=== PATIENT | female | born 1975 | race Caucasian/White ===

== ENCOUNTER 2020-10-01 09:06 | Outpatient (REF) | payer OTHER, SELFPAY ==
--- NOTE | 2020-10-01 09:11 | MM_ITS ---
EXAMINATION: MM SCREENING DIGITAL BREAST TOMOSYNTHESIS, BILATERAL CLINICAL INFORMATION: Screening. Asymptomatic. The lifetime risk of breast cancer based on the Tyrer-Cuzick Model is 11%. COMPARISON: Mammography: 06/08/2019, 01/07/2018, 07/17/2016 TECHNIQUE: Digital breast tomosynthesis is performed in both the craniocaudal and mediolateral oblique views along with computer-aided detection (CAD). Synthesized 2D images are generated from the tomosynthesis. FINDINGS: There are scattered areas of fibroglandular density (ACR BI-RADS breast composition Category b). There are no significant masses, abnormal calcifications, or other abnormalities. Parenchymal pattern is similar to prior exams. No significant changes. MM/MM tomosynthesis screening BI IMPRESSION: No mammographic evidence of malignancy. ASSESSMENT: BI-RADS 1: Negative RECOMMENDATION: Routine annual mammography screening. This patient's information was entered into a reminder system with a target due date for their next mammogram.
== END 2020-10-01 09:07 | disposition home or self-care (01) ==
LOC: HO.MAMMO 09:06
PROVIDERS: PCP Nurse Practitioner Family; Visit Provider Nurse Practitioner Family
DX: Z12.31 Encounter for screening mammogram for malignant neoplasm of breast (principal)
CPT/HCPCS: 77063; 77067

== ENCOUNTER 2020-10-11 09:12 | Outpatient (REF) | payer OTHER, SELFPAY ==
[2020-10-11 12:08] LABS: Glucose Random 93 mg/dL (60-115)
[2020-10-17 23:17] LABS: Cotinine, U <2 ng/mL; Nicotine, U <2 ng/mL
== END 2020-10-11 09:13 | disposition home or self-care (01) ==
LOC: HO.HMGCLDS 09:12
PROVIDERS: PCP Nurse Practitioner Family; Visit Provider Surgery
DX: E66.01 Morbid (severe) obesity due to excess calories (principal)
CPT/HCPCS: 80323; 82947; 84443

== ENCOUNTER 2020-10-31 07:09 | Outpatient (REF) | payer OTHER, SELFPAY ==
[2020-10-31 12:09] LABS: TSH reflex Free T4 3.68 uIU/mL (0.32-4.0)
[2020-10-31 12:11] LABS: Alanine Aminotransferase 16 U/L (0-31); Albumin Level 3.9 g/dL (3.5-5.0); Alkaline Phosphatase 87 U/L (39-117); Anion Gap 13 (12-20); Aspartate Amino Transferase 19 U/L (5-31); Bilirubin Total 0.4 mg/dL (0.0-1.0); Blood Urea Nitrogen 16 mg/dL (9-16); Calcium 8.7 mg/dL (8.4-10.2); Carbon Dioxide 29 mmol/L (22-29); Chloride 102 mmol/L (96-108); Cholesterol 181 mg/dL; Estimated Glomerular Filt Rate > 60; Glucose Fasting 92 mg/dL (60-99); HDL Cholesterol 66 mg/dL; LDL Cholesterol Calculated 96 mg/dl; Potassium 4.2 mmol/L (3.3-5.1); Sodium 140 mmol/L (135-145); Total Protein 6.9 g/dL (6.5-8.0); Triglycerides 96 mg/dL
== END 2020-10-31 07:10 | disposition home or self-care (01) ==
LOC: HO.HMGCLDS 07:09
PROVIDERS: PCP Nurse Practitioner Family; Visit Provider Nurse Practitioner Family
DX: Z00.00 Encounter for general adult medical examination without abnormal findings (principal)
CPT/HCPCS: 36415; 80053; 80061; 84443

== ENCOUNTER → 2020-11-25 14:06 | Outpatient (REF) | payer OTHER, SELFPAY ==
--- NOTE | 2020-11-25 14:20 | ECG_ITS ---
Hook-up date: 2020-11-25 14:17:00 Duration: 46:03:00 Test Indications: PALPITATIONS, CP Medications: 511943 QRS complexes 2 Ventricular ectopics which represent <1 % of total QRS comp. 28 Supraventricular ectopics which represent <1 % of total QRS comp. * Paced QRS complexs which represent % of total QRS comp. VENTRICULAR ECTOPY 2 Isolated 0 Bigeminal Cycles 0 Couplets 0 Runs 0 Beats in Runs * Beats LONGEST at * BPM at :: -- * Beats FASTEST at * BPM at :: -- SUPRAVENTRICULAR ECTOPY 28 Isolated 0 Couplets 0 Runs 0 Beats in Runs * Beats LONGEST at * BPM at :: -- * Beats FASTEST at * BPM at :: -- HEART RATES 62 MIN at 03:45:46 2020-11-26 90 AVG 149 MAX at 12:20:16 2020-11-26 LONGEST RR 0.9760 secs at 03:45:44 2020-11-26 S-T LEVELS Channel 1 - 128 mm at 14:17:00 2020-11-25 - 128 mm at 14:17:00 2020-11-25 Channel 2 - 128 mm at 14:17:00 2020-11-25 - 128 mm at 14:17:00 2020-11-25 Channel 3 - 128 mm at 03:33:61 -- - 128 mm at 03:33:61 Basic rhythm Normal sinus rhythm No long pause or profound bradycardia Frequent Sinus tachycardia Rare Premature atrial complexes Patient did not report any symptoms in the diary Referred By: Gigi Flynn Overread By: LUC JACKSON MD
== END ==
LOC: HO.CARD 14:06
PROVIDERS: PCP Nurse Practitioner Family; Visit Provider Nurse Practitioner Family
DX: R07.89 Other chest pain (principal); R00.2 Palpitations
CPT/HCPCS: 93225; 93226

== ENCOUNTER → 2020-12-04 08:40 | Outpatient (BNVA) | payer OTHER, SELFPAY | PROVIDERS: PCP Nurse Practitioner Family; Visit Provider Surgery ==

== ENCOUNTER 2020-12-05 13:22 | Outpatient (REF) | payer OTHER, SELFPAY ==
--- NOTE | ~2020-12-05 | XR_ITS ---
EXAMINATION: XR CHEST CLINICAL INFORMATION: Morbid obesity due to excess calories COMPARISON: None TECHNIQUE: 2 views of the chest were obtained. FINDINGS: The lungs are well expanded. There is no focal consolidation, edema, or effusion. No pneumothorax. The cardiomediastinal silhouette is within normal limits. No acute osseous abnormality. XR/XR chest 2V IMPRESSION: Clear lungs.
--- NOTE | 2020-12-05 13:39 | ECG_ITS ---
Test Reason : E66.01 Blood Pressure : / mmHG Vent. Rate : 085 BPM Atrial Rate : 085 BPM P-R Int : 130 ms QRS Dur : 080 ms QT Int : 352 ms P-R-T Axes : 066 045 025 degrees QTc Int : 418 ms Normal sinus rhythm Normal ECG No previous ECGs available Referred By: Nahum Trinh Electronically Signed By:LUC JACKSON MD
== END 2020-12-05 13:23 | disposition home or self-care (01) ==
LOC: HO.XRAY 13:22
PROVIDERS: PCP Nurse Practitioner Family; Visit Provider Surgery
DX: E66.01 Morbid (severe) obesity due to excess calories (principal); G47.30 Sleep apnea, unspecified; E78.5 Hyperlipidemia, unspecified
CPT/HCPCS: 71046; 93005

== ENCOUNTER 2020-12-11 09:10 | Outpatient (REF) | payer OTHER, SELFPAY ==
[2020-12-11 09:47] LABS: MANUAL DIFF FLAG NO
[2020-12-11 09:53] LABS: Basophils Absolute Auto 0.1 X10*3/uL (0.0-0.2); Basophils Percent Auto 1.2 % (0-2); Eosinophils Absolute Auto 0.1 X10*3/uL (0.0-0.4); Eosinophils Percent Auto 1.1 % (0-4); Hematocrit 43.7 % (37-47); Hemoglobin 14.1 g/dl (12.0-16.0); Imm Gran Abs Auto 0.03 X10*3/uL (0.00-0.03); Imm Gran Pct Auto 0.4 % (0.0-0.4); Lymphocytes Absolute Auto 2.8 X10*3/uL (1.2-4.9); Lymphocytes Percent Auto 33.1 % (20-40); Mean Corpuscular HGB Conc 32.3 g/dl (31.0-35.0); Mean Platelet Volume 9.8 fL (9.4-12.3); Monocytes Absolute Auto 0.5 X10*3/uL (0.1-1.2); Monocytes Percent Auto 6.2 % (2-11); Neutrophils Absolute Auto 4.9 X10*3/uL (2.0-8.3); Platelet Count 334 X10*3/uL (160-400); Red Cell Distribution Width 12.4 % (11.0-16.0); White Blood Count 8.4 X10*3/uL (4.8-10.8)
[2020-12-11 10:16] LABS: Estimated Average Glucose 94 mg/dL; Hemoglobin A1c % 4.9 %
[2020-12-11 10:21] LABS: Alanine Aminotransferase 14 U/L (0-31); Albumin Level 4.2 g/dL (3.5-5.0); Alkaline Phosphatase 97 U/L (39-117); Anion Gap 12 (12-20); Aspartate Amino Transferase 18 U/L (5-31); Bilirubin Total 0.8 mg/dL (0.0-1.0); Blood Urea Nitrogen 16 mg/dL (9-16); C Reactive Protein 1.51 mg/dL (< or = 0.50); Calcium 8.9 mg/dL (8.4-10.2); Carbon Dioxide 28 mmol/L (22-29); Chloride 104 mmol/L (96-108); Cholesterol 175 mg/dL; Estimated Glomerular Filt Rate > 60; Glucose Random 98 mg/dL (60-115); HDL Cholesterol 64 mg/dL; LDL Cholesterol Calculated 94 mg/dl; Potassium 4.5 mmol/L (3.3-5.1); Sodium 139 mmol/L (135-145); Total Protein 7.1 g/dL (6.5-8.0); Triglycerides 86 mg/dL
[2020-12-11 10:42] LABS: Ferritin 90 ng/mL (10-250); TSH reflex Free T4 2.38 uIU/mL (0.32-4.0); Vitamin D 25-OH Total 31.8 ng/mL (>30)
[2020-12-11 11:09] LABS: Folate 16.5 ng/mL (> or = 4.0); Vitamin B12 611 pg/mL (200-900)
[2020-12-12 13:42] LABS: H Pylori Breath Test NOT DETECTED (NOT DETECTED)
[2020-12-12 21:37] LABS: Calcium (PTHI) 9.1 mg/dL (8.6-10.2); Insulin Level Total 11.2 uIU/mL; PTHI 46 pg/mL (14-64)
[2020-12-13 21:32] LABS: Zinc 87 mcg/dL (60-130)
[2020-12-16 03:56] LABS: Vitamin A 45 mcg/dL (38-98)
[2020-12-17 11:12] LABS: Vitamin B1 11 nmol/L (8-30)
== END 2020-12-11 09:11 | disposition home or self-care (01) ==
LOC: HO.LAB 09:10
PROVIDERS: PCP Nurse Practitioner Family; Visit Provider Surgery
DX: E66.01 Morbid (severe) obesity due to excess calories (principal); G47.30 Sleep apnea, unspecified; E78.5 Hyperlipidemia, unspecified; Z11.0 Encounter for screening for intestinal infectious diseases
CPT/HCPCS: 36415; 80053; 80061; 82306; 82607; 82728; 82746; 83013; 83036; 83525; 83970; 84425; 84443; 84590; 84630; 85025; 86140

== ENCOUNTER 2020-12-24 08:33 | Outpatient (REF) | payer OTHER, SELFPAY ==
--- NOTE | ~2020-12-24 | FL_ITS ---
EXAMINATION: XR GI SERIES CLINICAL INFORMATION: Obesity. COMPARISON: None TECHNIQUE: Upper GI was performed using thin and thick barium and effervescent granules. FINDINGS: Esophageal motility is normal. There is a single significant gastroesophageal reflux. No esophageal hernia is seen. Stomach and duodenum are normal-appearing. No fold thickening, mass, ulcer or stricture is seen. FLUOROSCOPY TIME: 0.8 minutes DOSE AREA PRODUCT: 10 holguin per centimeter squared. 23 saved fluoroscopic images. FL/FL upper GI series IMPRESSION: Significant gastroesophageal reflux otherwise unremarkable exam.
--- NOTE | ~2020-12-24 | US_ITS ---
EXAMINATION: US COMPLETE ABDOMEN WITH LIVER ELASTOGRAPHY CLINICAL INFORMATION: Obesity COMPARISON: Previous abdominal ultrasound June 2019 TECHNIQUE: Real-time imaging of the abdominal viscera. Noninvasive ultrasound liver fibrosis assessment is performed using Vaughn ElastPQ point quantification shear wave elastography (pSWE) with a C5-2 MHz transducer. Multiple elastography samples are obtained. FINDINGS: PANCREAS: Normal. ABDOMINAL AORTA: The proximal, middle, and distal aortic segments are normal in caliber. INFERIOR VENA CAVA: Visualized portions are normal. LIVER: Normal liver echotexture is slightly increased. There multiple focal rounded echogenic lesions and irregularly-shaped echogenic areas. The largest measures 3.1 x 1.3 x 1.4 cm in the right lobe of the liver adjacent to the gallbladder. These were not appreciated on previous ultrasound exam June 2019. Liver echotexture is slightly increased. The liver is normal in size. There is no intrahepatic biliary duct dilatation. The right lobe measures 16 cm in length. The left lobe measures 11 cm in length. Portal flow is normal/hepatopedal. Shear wave liver elastography median stiffness is 1.25 m/s (reference: normal median stiffness is 1.3 m/s or less). IQR/median stiffness to assess sampling precision is 0.26 (reference: good quality data set is IQR/median stiffness of 0.15 or less). GALLBLADDER: Normal. The gallbladder is physiologically distended without evidence of stones, sludge, polyps, wall thickening or pericholecystic fluid. COMMON BILE DUCT: Normal in caliber measuring 0.3 cm in diameter. RIGHT KIDNEY: Normal. No hydronephrosis. No renal calculi or focal parenchymal lesions. The kidney measures 11.3 cm in maximum dimension. LEFT KIDNEY: Normal. No hydronephrosis. No renal calculi or focal parenchymal lesions. The kidney measures 11.8 cm in maximum dimension. SPLEEN: Normal. The spleen measures 11.8 cm in maximum dimension. FREE FLUID: None. US/US abdomen comp w elastography IMPRESSION: 1. Multiple newly appreciated hyperechoic liver lesions, largest measuring 3.1 x 1.3 x 1.4 cm in the right lobe adjacent to the gallbladder. Further characterization with liver MRI should be considered. Slightly echogenic liver echotexture probably representing mild diffuse fatty infiltration. 2. Liver elastography: High probability of being normal. Slightly limited due to sampling error. REFERENCE: Society of Radiologists in Ultrasound Liver Stiffness Thresholds (2020): LIVER STIFFNESS THRESHOLDS: *Liver Stiffness equal or less than 1.3 m/s: High probability of being normal. *Liver Stiffness less than 1.7 m/s: In the absence of other known clinical signs, rules out compensated advanced chronic liver disease. *Liver Stiffness 1.7-2.1 m/s: Suggestive of compensated advanced chronic liver disease but need further test for confirmation. *Liver Stiffness over 2.1 m/s: Rules in compensated advanced chronic liver disease. *Liver Stiffness over 2.4 m/s: Suggestive of clinically significant portal hypertension. QUALITY OF DATA SET: *IQR/Median value equal or less than 0.15 implies a quality data set. *IQR/Median value over 0.15 implies a poor quality data set. SIGNIFICANT CHANGE FROM PRIOR EXAM: Significant change if liver stiffness measurement is 10% or greater from prior exam. OTHER CONSIDERATIONS: The stage of liver fibrosis may be overestimated in the setting of acute hepatitis, liver inflammation, elevated liver function tests, hepatic vascular congestion, obstructive cholestasis, non-fasting state, and infiltrative diseases such as amyloidosis and lymphoma. In some patients with NAFLD, the liver stiffness thresholds for compensated advanced chronic liver disease may be lower. In causes other than viral hepatitis and NAFLD, liver stiffness thresholds are not well established.
== END 2020-12-24 08:34 | disposition home or self-care (01) ==
LOC: HO.US 08:33
PROVIDERS: Visit Provider Surgery
DX: Z01.818 Encounter for other preprocedural examination (principal); E66.01 Morbid (severe) obesity due to excess calories; K21.9 Gastro-esophageal reflux disease without esophagitis; G47.30 Sleep apnea, unspecified; G47.10 Hypersomnia, unspecified; G47.19 Other hypersomnia
CPT/HCPCS: 74240; 76705; 76981; 95806

== ENCOUNTER → 2021-12-16 14:50 | Outpatient (BNVA) | payer OTHER, SELFPAY | PROVIDERS: PCP Nurse Practitioner Family; Visit Provider Physician Assistant | DX: K21.9 Gastro-esophageal reflux disease without esophagitis (principal); Z12.11 Encounter for screening for malignant neoplasm of colon; Z79.899 Other long term (current) drug therapy | CPT/HCPCS: 99202 ==

== ENCOUNTER 2022-01-13 09:00 | Outpatient (REF) | payer SELFPAY ==
--- NOTE | ~2022-01-13 | MM_ITS ---
EXAMINATION: MM SCREENING DIGITAL BREAST TOMOSYNTHESIS, BILATERAL CLINICAL INFORMATION: Screening. Asymptomatic. The lifetime risk of breast cancer based on the Tyrer-Cuzick Model is 11%. COMPARISON: Mammography: 10/01/2020, 06/08/2019, 01/07/2018 TECHNIQUE: Digital breast tomosynthesis is performed in both the craniocaudal and mediolateral oblique views along with computer-aided detection (CAD). Synthesized 2D images are generated from the tomosynthesis. Additional bilateral MLO views are provided. FINDINGS: There are scattered areas of fibroglandular density (ACR BI-RADS breast composition Category b). There are no significant masses, abnormal calcifications, or other abnormalities. Parenchymal pattern is similar to prior studies. The axilla and skin contours are unremarkable. MM/MM tomosynthesis screening BI IMPRESSION: No mammographic evidence of malignancy. ASSESSMENT: BI-RADS 1: Negative RECOMMENDATION: Routine annual mammography screening. This patient's information was entered into a reminder system with a target due date for their next mammogram.
== END 2022-01-13 09:01 | disposition home or self-care (01) ==
LOC: HO.MAMMO 09:00
PROVIDERS: PCP Nurse Practitioner Family; Visit Provider Nurse Practitioner Family
DX: Z12.31 Encounter for screening mammogram for malignant neoplasm of breast (principal)
CPT/HCPCS: 77063; 77067

== ENCOUNTER 2022-10-22 09:33 | Day surgery (SDC) | payer BC, SELFPAY ==
[2022-05-27 09:18] VITALS: BMI 47.3
--- NOTE | 2022-10-21 10:41 | HO.ANESPROP2 ---
Documented by User: Laura Wade NP 10/21/22 10:41 HPI - Anesthesia Eval Consult details Narrative: 47yo F for Upper Endoscopy and Colonoscopy [facility] Active Problems Active Problems: All Active Problems (Updated 05/27/22 @ 09:25 by Meli Chowdhury RN) Obesity (Acute) Dyslipidemia (Acute) Sleep apnea (Acute) Chest discomfort (Acute) Palpitations (Acute) Physical exam (Acute) Adjustment disorder, unspecified (Acute) Pre-op evaluation (Acute) GERD (gastroesophageal reflux disease) (Acute) Encounter for screening colonoscopy (Acute) Plantar fasciitis (Acute) Anxiety (Acute) Hyperlipidemia (Acute) Morbid obesity (Acute) Past Medical History Medical History (Updated 05/27/22 @ 09:25 by Meli Chowdhury RN) Ankle fracture, right Anxiety History of COVID-19 History of tachycardia Hyperlipidemia Morbid obesity On beta joe at home BRYANNA (obstructive sleep apnea) Plantar fasciitis Family History Family History Father Diabetes mellitus Depression Anger CHF (congestive heart failure) Stroke Aphagia Pneumonia Mother HTN (hypertension) Anxiety Depression Uterine cancer Son No problems noted. Daughter No problems noted. Daughter No problems noted. Maternal Grandmother Anxiety Depression Lung cancer Maternal Grandfather No problems noted. Paternal Grandfather No problems noted. Paternal Grandmother No problems noted. Other Mental health disorder Substance use disorder Surgical History Surgical History (Updated 05/27/22 @ 09:30 by Meli Chowdhury RN) History of ankle surgery History of section Hx of wisdom tooth extraction Social History Social History (Updated 12/16/21 @ 15:25 by Dayna Edwards PA-C) Household Members Other:: 3 kids- Housing: House Are you a primary child care assistant to a significant other at home: No Do you presently have visiting nurse or other home services: No Alcohol intake: current Alcohol intake frequency: holidays/special occasions only Patient Tobacco Use Status: Former Tobacco user Quit Date: as teenager Tobacco use type: Cigarette Use of substances other than those prescribed or required for medical reasons: No Have you been hit, kicked, punched, or otherwise hurt by someone within the past year? If so, by whom?: No Are you DNR?: No Advance Directives: No Advance Directives Information Provided: Yes Advance Directives on File: No Recently lost weight without trying: No Nutrition Risks: No Nutritional Risk Patient : No FDLMP: 05/20/22 : No Poor oral hygiene: No (Capped front teeth) Current occupational status: employed Meds Allergies Allergy/AdvReac Type Severity Reaction Status Date / Time No Known Allergies Allergy Verified 05/27/22 09:17 Home Medications Medication Instructions Recorded Confirmed Last Taken Type levonorgestrel 0.15 mg-ethinyl 1 tab PO DAILY 05/27/22 05/27/22 Unknown History estradiol 0.03 mg tablet ([place] (28)) Exam Exam Date and Time: October 21, 2022 1041 Height,Weight and Vital Signs: Height 5 ft 4.5 in Weight 127.006 kg Assessment and Plan Assessment Anesthesia Assessment: Chart Reviewed Documented by User: Lonny Lanier MD 10/22/22 11:22 [facility] Past Medical History Medical History (Updated 05/27/22 @ 09:25 by Meli Chowdhury RN) Ankle fracture, right Anxiety History of COVID-19 History of tachycardia Hyperlipidemia Morbid obesity On beta joe at home BRYANNA (obstructive sleep apnea) Plantar fasciitis Patient : No Family History Family History Father Diabetes mellitus Depression Anger CHF (congestive heart failure) Stroke Aphagia Pneumonia Mother HTN (hypertension) Anxiety Depression Uterine cancer Son No problems noted. Daughter No problems noted. Daughter No problems noted. Maternal Grandmother Anxiety Depression Lung cancer Maternal Grandfather No problems noted. Paternal Grandfather No problems noted. Paternal Grandmother No problems noted. Other Mental health disorder Substance use disorder Family history of problems with anesthesia: No Surgical History Surgical History (Updated 05/27/22 @ 09:30 by Meli Chowdhury RN) History of ankle surgery History of section Hx of wisdom tooth extraction History of Problems with Anesthesia: No Social History Social History (Updated 12/16/21 @ 15:25 by Dayna Edwards PA-C) Household Members Other:: 3 kids- Housing: House Are you a primary child care assistant to a significant other at home: No Do you presently have visiting nurse or other home services: No Alcohol intake: current Alcohol intake frequency: holidays/special occasions only Patient Tobacco Use Status: Former Tobacco user Quit Date: as teenager Tobacco use type: Cigarette Use of substances other than those prescribed or required for medical reasons: No Have you been hit, kicked, punched, or otherwise hurt by someone within the past year? If so, by whom?: No Are you DNR?: No Advance Directives: No Advance Directives Information Provided: Yes Advance Directives on File: No Recently lost weight without trying: No Nutrition Risks: No Nutritional Risk Patient : No FDLMP: 05/20/22 : No Poor oral hygiene: No (Capped front teeth) Current occupational status: employed Meds Allergies Allergy/AdvReac Type Severity Reaction Status Date / Time No Known Allergies Allergy Verified 05/27/22 09:17 Home Medications Medication Instructions Recorded Confirmed Last Taken Type levonorgestrel 0.15 mg-ethinyl 1 tab PO DAILY 05/27/22 05/27/22 Unknown History estradiol 0.03 mg tablet ([place] (28)) Exam Airway Mallampati Class: I TM Dist: >3cm Neck ROM: Full Loose/Missing/Broken Teeth: No Heart: ok Lungs: ok Assessment and Plan Final Anesthetic Review Family History of Problems with Anesthesia: No History of Problems with Anesthesia: No NPO: Yes ASA Class: III Final Preanesthetic Review: No Changes in Pt Med Stat, Meds/Allgs Chart Reviewed, Consent Obtained/Reviewed and Anes Risks/Benef Reviewed Patient Risk: Intermediate Procedure Risk: Intermediate Anesthetic Plan Anesthetic Plan: MAC: and Agree w/ Assess. and Plan Disposition: Standard PACU
[2022-10-22 10:16] LABS: UPreg QC Valid YES; Urine Pregnancy NEGATIVE (NEGATIVE)
--- NOTE | 2022-10-22 10:21 | MHC.SHP ---
Pre-Procedural Eval Section A Date of Service: 10/22/22 Section B Chief Complaint: screening,reflux Details of Present Illness: 47y.o with PMH obesity, anxiety, BRYANNA, HLD who is here for EGD and colonoscopy. Relevant Family History (Specify if Yes): No Present Medications: see Short Stay Collaborative assessment Medical History: Significant History (as above ) History of Previous Operations: No relevant previous surgery Allergies: Allergies Allergy/AdvReac Type Severity Reaction Status Date / Time No Known Allergies Allergy Verified 05/27/22 09:17 Review of Systems Review of Systems Comment: Ten point ROS negative except as above Exam Exam Comment: Gen appear: No acute distress, well nourished HEENT: no icterus Chest: No overt resp distress Abd: soft, nontender, nondistended Psych: Stable affect, answering questions appropriately Neuro: A/Ox3 noted to move all extremities spontaneously Ext: no peripheral edema Plan I have reviewed the history and physical and performed a pertinent physical examination on my patient. No changes have occurred unless specified. Time Spent With Patient Time: Total time managing care of this patient today ____ minutes.
[2022-10-22] MEDS: Lactated Ringers 1,000 ML 100 ML IVCONT (10:42)
--- NOTE | 2022-10-22 11:12 | P.OP_ITS ---
Operative Note Operative Note Date of Service: 10/22/22 Narrative: Procedure:?Esophagogastroduodenoscopy and Colonoscopy Indication:?Hx of diverticulitis, anemia Endoscopist:?Radha Madrid MD Anesthesia Provider:?Dr Lonny Lanier Anesthesia type:?MAC Instrument:?Olympus GIF-H190 and CF-H190L EGD Procedure:?? The procedure, indications, preparation and potential complications were reviewed with the patient who indicated understanding and gave written informed consent to proceed. A physical exam was performed. The endoscope was introduced through the mouth, and advanced to the second part of duodenum. The mucosa was carefully examined on slow withdrawal of the endoscope. The patient tolerated the procedure well. There were no immediate complications.? ? EGD Findings:? * Esophagus:? Normal mucosa noted in the entire esophagus. The Z line was at 36 cm. Cold forceps biopsies were taken from GE junction. * Stomach:? A few erosions were noted in the pyloric channel.? Random gastric biopsies were taken to rule out H Pylori infection. Scattered gastric polyps measuring 3-6 mm were noted in the fundus. * Duodenum:? Normal mucosa was noted in the whole of the examined duodenum. Biopsies were taken from duodenal bulb and second portion of the duodenum to rule out celiac sprue?? Colonoscopy Procedure:? The patient was then turned for the colonoscopy. A digital rectal exam was performed which was normal. The colonoscope was then inserted through the anus and advanced through the colon to the cecum at 85 cm and terminal ileum. The appendiceal orifice and ileocecal valve was identified.? Mucosa was carefully examined under high definition white light as the instrument was slowly withdrawn in a retrograde panoramic fashion. Retroflexion was performed in ascending colon and rectum. The procedure was not difficult. There were no immediate obvious complications. The quality of the prep was BBPS: 3+3+3 = excellent Withdrawal time 12 minutes. Limitations: No limitations.? Findings: Mucosa: Exudates were noted on the ileocecal valve. Cold forceps biopsies were obtained. Otherwise remaining mucosa normal to cecum and terminal ileum (intubated to 10 cm). Protruding lesions: * 1 sessile polyp of size 3 mm was noted in the transverse colon. Cold snare polypectomy was performed. The polyp was completely removed and retrieved. * Medium internal hemorrhoids without stigmata of recent bleeding. Excavated lesions: * Multiple small and medium mouthed diverticula noted in transverse colon and left colon.? Impression:? * Normal esophagus (biopsy) * Pyloric erosions (biopsy) * Gastric polyps - likely fundic gland polyps * Normal duodenum * Abnormal IC valve mucosa (biopsy) * Normal colon and terminal mucosa * 1 polyp removed from transverse colon * Diverticulosis * Internal hemorrhoids Recommendations:?? * Follow path results. * Repeat colonoscopy for CRC screening in 7-10 years * Increase fiber intake * Avoid NSAIDs Above has been reviewed with the patient.
[2022-10-22 11:50] VITALS: BP 117/69; PULSE 75; RESP 20; TEMP 36.8; O2SAT 97
[2022-10-22 12:10] VITALS: BP 117/69; PULSE 75; RESP 20; TEMP 36.9; O2SAT 97
== END 2022-10-22 14:14 | disposition home or self-care (01) ==
PROVIDERS: Nurse Practitioner; PCP Nurse Practitioner Family; Visit Provider Internal Medicine
PROC: (CPT 45385; principal; 2022-10-22 10:50)
DX: Z12.11 Encounter for screening for malignant neoplasm of colon (principal); K63.5 Polyp of colon; K57.30 Diverticulosis of large intestine without perforation or abscess without bleeding; K64.8 Other hemorrhoids; K21.9 Gastro-esophageal reflux disease without esophagitis; K31.7 Polyp of stomach and duodenum; K25.9 Gastric ulcer, unspecified as acute or chronic, without hemorrhage or perforation; G47.33 Obstructive sleep apnea (adult) (pediatric); E78.5 Hyperlipidemia, unspecified; E66.01 Morbid (severe) obesity due to excess calories; Z79.899 Other long term (current) drug therapy; Z86.16 Personal history of COVID-19
CPT/HCPCS: 45385; 45380; 43239; 81025; 88305; 88342; J3010

== ENCOUNTER → 2022-11-02 14:59 | Outpatient (BNVA) | payer BC, SELFPAY | PROVIDERS: PCP Nurse Practitioner Family; Visit Provider Physician Assistant | DX: Z13.89 Encounter for screening for other disorder (principal) ==

== ENCOUNTER 2022-12-22 11:36 | Outpatient (REF) | payer BC, SELFPAY ==
--- NOTE | ~2022-12-22 | XR_ITS ---
EXAMINATION: XR KNEE, LEFT CLINICAL INFORMATION: Pain COMPARISON: None available. TECHNIQUE: Four views of the left knee. FINDINGS: Subtle lucency of the superior pole of the patella. Remainder of the osseous structures appear intact. No knee joint effusion. No significant soft tissue swelling. XR/XR knee LT 4V IMPRESSION: Subtle lucency of the superior pole of the patella, a nondisplaced fracture cannot be fully excluded. Recommend correlation with point tenderness.
[2022-12-22 14:10] LABS: MANUAL DIFF FLAG NO
[2022-12-22 14:14] LABS: Appearance Urine Turbid; Color Urine Yellow; Glucose Urine UA Negative (Negative); Leukocyte Esterase Urine Negative (Negative); Nitrite Urine Negative (Negative); Specific Gravity - Urine 1.025 (1.005-1.025); UMIC TRIGGER UACC YES; Urine Blood Small (1+) (Negative); Urine Ketones Negative (Negative); Urine Protein Negative (Neg-Trace)
[2022-12-22 14:21] LABS: Basophils Absolute Auto 0.1 X10*3/uL (0.0-0.2); Basophils Percent Auto 0.9 % (0-2); Eosinophils Absolute Auto 0.1 X10*3/uL (0.0-0.4); Eosinophils Percent Auto 0.5 % (0-4); Hematocrit 42.5 % (37.0-47.0); Hemoglobin 13.7 g/dl (12.0-16.0); Imm Gran Abs Auto 0.04 X10*3/uL (0.00-0.03); Imm Gran Pct Auto 0.3 % (0.0-0.4); Lymphocytes Absolute Auto 3.4 X10*3/uL (1.2-4.9); Lymphocytes Percent Auto 27.9 % (20-40); Mean Corpuscular HGB Conc 32.2 g/dl (31.0-35.0); Mean Corpuscular Hemoglobin 29.7 pg (27.0-33.0); Mean Corpuscular Volume 92.2 fL (80.0-98.0); Mean Platelet Volume 10.7 fL (9.4-12.3); Monocytes Absolute Auto 0.5 X10*3/uL (0.1-1.2); Monocytes Percent Auto 4.3 % (2-11); Neutrophils Percent Auto 66.1 % (45-73); Platelet Count 371 X10*3/uL (160-400); Red Blood Count 4.61 X10*6/uL (4.20-5.50); Red Cell Distribution Width 12.6 % (11.0-16.0); White Blood Count 12.1 X10*3/uL (4.8-10.8)
[2022-12-22 14:34] LABS: Bacteria Urine None Seen (None Seen); Hyaline Casts Urine 0-2 /LPF (0-2); Squamous Epithelial Cell Urine 0-2 /HPF (0-2); WBC Urine 0-5 /HPF (0-5)
[2022-12-22 16:15] LABS: Alanine Aminotransferase 13 U/L (0-31); Albumin Level 4.1 g/dL (3.5-5.0); Alkaline Phosphatase 102 U/L (39-117); Anion Gap 14 (12-20); Aspartate Amino Transferase 18 U/L (5-31); Bilirubin Total 0.5 mg/dL (0.0-1.0); Blood Urea Nitrogen 15 mg/dL (9-16); Calcium 9.2 mg/dL (8.4-10.2); Carbon Dioxide 26 mmol/L (22-29); Chloride 105 mmol/L (96-108); Cholesterol 201 mg/dL; Estimated Glomerular Filt Rate > 60; Glucose Fasting 85 mg/dL (60-99); HDL Cholesterol 60 mg/dL; LDL Cholesterol Calculated 119 mg/dl; Potassium 4.8 mmol/L (3.3-5.1); Sodium 140 mmol/L (135-145); Total Protein 7.1 g/dL (6.5-8.0); Triglycerides 112 mg/dL
[2022-12-22 16:34] LABS: TSH reflex Free T4 2.13 uIU/mL (0.32-4.0)
== END 2022-12-22 11:37 | disposition home or self-care (01) ==
LOC: HO.HMGCX 11:36
PROVIDERS: PCP Nurse Practitioner Family; Visit Provider Nurse Practitioner Family
DX: M25.562 Pain in left knee (principal); F41.9 Anxiety disorder, unspecified; E78.5 Hyperlipidemia, unspecified
CPT/HCPCS: 36415; 73564; 80053; 80061; 81001; 84443; 85025

== ENCOUNTER 2023-01-04 11:18 | Outpatient (REF) | payer BC, SELFPAY ==
--- NOTE | ~2023-01-04 | MR_ITS ---
EXAMINATION: MR KNEE WITHOUT CONTRAST, LEFT CLINICAL INFORMATION: Left knee pain, swelling, discomfort. COMPARISON: Left knee radiographs dated 12/22/2022. TECHNIQUE: MRI of the knee without contrast was performed using routine sequences on a high-field scanner. FINDINGS: MENISCI: Medial Meniscus: Intact Lateral Meniscus: Minimal degenerative intrasubstance signal within the meniscal body without articular surface tearing. LIGAMENTS: Cruciate: Intact Collateral: Mild edema adjacent to the medial collateral ligament consistent with a grade 1 sprain. Intact fibular collateral ligament. EXTENSOR MECHANISM: Normal patellofemoral alignment. Intact quadriceps and patellar tendons. ARTICULAR CARTILAGE/BONE: Patellofemoral Compartment: Central and medial trochlear articular cartilage thinning with areas of full-thickness loss measuring up to 1.6 cm in craniocaudal dimension. Inferior patellar median ridge articular cartilage thinning with near full-thickness loss. Marginal osteophytes. Medial Compartment: Focal full-thickness articular cartilage loss at the anterior aspect of the medial femoral condyle measuring up to 0.8 x 0.4 cm (AP x ML). Central weight-bearing medial femoral condyle articular cartilage signal heterogeneity and partial-thickness loss measuring up to 1.0 cm in ML dimension. Small marginal osteophytes. Lateral Compartment: Intact articular cartilage. JOINT FLUID AND BURSAE: Moderate joint effusion and small to moderate Navarro's cyst. MR/MR knee LT wo con IMPRESSION: 1. Minimal degenerative intrasubstance signal within the lateral meniscal body without articular surface tearing. 2. Probable grade 1 sprain of the medial collateral ligament. 3. [id number] patellofemoral as well as mild medial compartment osteoarthritis. Moderate joint effusion and small to moderate Navarro's cyst.
== END 2023-01-04 11:19 | disposition home or self-care (01) ==
LOC: HO.MRI 11:18
PROVIDERS: PCP Nurse Practitioner Family; Visit Provider Nurse Practitioner Family
DX: M25.562 Pain in left knee (principal); M87.9 Osteonecrosis, unspecified; R93.89 Abnormal findings on diagnostic imaging of other specified body structures
CPT/HCPCS: 73721

== ENCOUNTER 2023-01-15 10:06 | Outpatient (RCR) | payer BC, SELFPAY ==
--- NOTE | 2023-01-15 11:26 | MHC.PT.EP ---
[facility] [place] Office [place] [facility] [place] [facility] [address] Kathryn Taylor [address] [phone] F: [phone] F: [phone] F: [phone] F: [phone] Physical Therapy Plan of Care Date of Evaluation: Date of Surgery: N/A Diagnosis: left knee pain (RC) Assessment: pt is a 47 y/o female presenting to physical therapy w/ referring diagnosis of left knee pain. pt's MRI is (+) for grade 1 MCL sprain. Impairments include pain, decreased range of motion, decreased strength, impaired functional mobility, impaired postural awareness, and altered ambulation mechanics. pt is a good candidate for skilled PT due to age, potential remediation of impairments, typical disease/condition progression and prognosis, comorbidities, and motivation. pt would benefit from skilled PT intervention to provide a tailored strengthening and stretching exercise program, functional training, gait training, postural re-training, neuromuscular re-education, modalities as needed for pain, equipment safety demonstration. Frequency and Duration: The patient will be seen 2x/wk for 4 wks Short Term Goals: pt will be I w/ HEP to promote self-management of condition. pt will improve L quad strength to 5/5 to promote ease in sit<>stand transfers. Clinical Dietician Goals: pt will ascend/descend 12 stairs w/ railing using reciprocal pattern to promote access to primary living spaces. pt will report a statistically significant improvement in self-reported outcome measure, LEFI, to promote return to PLOF. Treatment Plan: Modalities to reduce pain, spasms and effusion. Manual therapy to restore motion and function. Therapeutic exercise to improve strength and flexibility. Neuromuscular re-education for posture and balance. Therapeutic activities to return to functional activities of daily living. Electronically signed by: uPrvi Perez PT, DPT Please sign and return to therapist. Thank you for your referral.
--- NOTE | 2023-02-09 13:10 | MHC.PT.DC ---
[facility] [place] [facility] [place] [facility] [place] Office [address] Kathryn Taylor 140 [facility] [phone] F: [phone] F: [phone] F: [phone] F: [phone] Physical Therapy Discharge Report Diagnosis: left knee pain (RC) Date of Surgery: N/A Date of Evaluation: 01/15/23 Date of Discharge: 02/09/23 Treatments to Date: 1 Cancellations to Date: 0 No Shows to Date: 2 Discharge Status: Visit Non-compliance Discharge Summary: The patient only scheduled 2 of the recommended 8 visits. She no showed both of those appointments. She is discharged from this physical therapy plan of care due to visit non-compliance. Electronically signed by: Purvi Perez PT, DPT Please sign and return to therapist. Thank you for your referral.
== END 2023-02-09 13:10 | disposition home or self-care (01) ==
LOC: HO.PT 10:06
PROVIDERS: PCP Nurse Practitioner Family; Visit Provider Nurse Practitioner Family
DX: M25.562 Pain in left knee (principal)
CPT/HCPCS: 97110; 97162

== ENCOUNTER → 2023-03-04 14:39 | Outpatient (BNVA) | payer BC, SELFPAY | PROVIDERS: PCP Nurse Practitioner Family; Visit Provider Orthopaedic Surgery | DX: M17.12 Unilateral primary osteoarthritis, left knee (principal); M25.561 Pain in right knee | CPT/HCPCS: 20610; J1100 ==

== ENCOUNTER 2023-09-23 08:47 | Outpatient (REF) | payer OTHER, SELFPAY ==
[2023-09-23 11:27] LABS: MANUAL DIFF FLAG NO
[2023-09-23 11:35] LABS: Basophils Absolute Auto 0.1 X10*3/uL (0.0-0.2); Basophils Percent Auto 1.3 % (0-2); Eosinophils Absolute Auto 0.1 X10*3/uL (0.0-0.4); Eosinophils Percent Auto 1.4 % (0-4); Hematocrit 44.1 % (37.0-47.0); Hemoglobin 14.3 g/dl (12.0-16.0); Imm Gran Abs Auto 0.01 X10*3/uL (0.00-0.03); Imm Gran Pct Auto 0.1 % (0.0-0.4); Lymphocytes Absolute Auto 3.1 X10*3/uL (1.2-4.9); Lymphocytes Percent Auto 36.4 % (20-40); Mean Corpuscular HGB Conc 32.4 g/dl (31.0-35.0); Mean Corpuscular Hemoglobin 30.2 pg (27.0-33.0); Mean Platelet Volume 10.3 fL (9.4-12.3); Monocytes Absolute Auto 0.5 X10*3/uL (0.1-1.2); Monocytes Percent Auto 5.2 % (2-11); Neutrophils Absolute Auto 4.8 x10*3/uL (2.0-8.3); Neutrophils Percent Auto 55.6 % (45-73); Platelet Count 364 X10*3/uL (160-400); Red Blood Count 4.74 X10*6/uL (4.20-5.50); Red Cell Distribution Width 12.7 % (11.0-16.0); White Blood Count 8.6 X10*3/uL (4.8-10.8)
[2023-09-23 11:36] LABS: Appearance Urine Cloudy; Color Urine Dark Yellow; Glucose Urine UA Negative (Negative); Leukocyte Esterase Urine Negative (Negative); Nitrite Urine Negative (Negative); PH 5.5 (5.0-9.0); Specific Gravity - Urine 1.025 (1.005-1.025); UMIC TRIGGER UACC YES; Urine Blood Moderate (2+) (Negative); Urine Ketones Negative (Negative); Urine Protein Negative (Neg-Trace)
[2023-09-23 11:40] LABS: Bacteria Urine 1+ (None Seen); Hyaline Casts Urine 0-2 /LPF (0-2); UACC Culture Trigger YES
[2023-09-23 12:08] LABS: Alanine Aminotransferase 12 U/L (0-31); Alkaline Phosphatase 82 U/L (39-117); Anion Gap 12 (12-20); Aspartate Amino Transferase 17 U/L (5-31); Bilirubin Total 0.4 mg/dL (0.0-1.0); Blood Urea Nitrogen 14 mg/dL (9-16); Calcium 9.3 mg/dL (8.4-10.2); Carbon Dioxide 27 mmol/L (22-29); Chloride 106 mmol/L (96-108); Cholesterol 182 mg/dL (<200); Estimated Glomerular Filt Rate > 60; Glucose Fasting 96 mg/dL (60-99); HDL Cholesterol 56 mg/dL (>40); LDL Cholesterol Calculated 106 mg/dL (<100); Potassium 4.7 mmol/L (3.3-5.1); Sodium 140 mmol/L (135-145); Total Protein 7.4 g/dL (6.5-8.0); Triglycerides 103 mg/dL (<150)
[2023-09-23 12:25] LABS: TSH reflex Free T4 2.76 uIU/mL (0.32-4.0)
== END 2023-09-23 08:48 | disposition home or self-care (01) ==
LOC: HO.HMGCLDS 08:47
PROVIDERS: PCP Nurse Practitioner Family; Visit Provider Nurse Practitioner Family
DX: Z00.00 Encounter for general adult medical examination without abnormal findings (principal); R82.90 Unspecified abnormal findings in urine
CPT/HCPCS: 36415; 80053; 80061; 81001; 84443; 85025; 87086

== ENCOUNTER 2024-01-01 13:37 | Outpatient (AMB) | payer OTHER, SELFPAY ==
--- NOTE | 2024-01-01 14:26 | MHC.OFFWIV ---
Intake Vital Signs 01/01/24 14:27 Height 5 ft 4.5 in Weight 273 lb BMI 46.1 BP 122/74 Blood Pressure Location Lt brachial Position Sitting Pulse 104 H Pulse Source Pulse Oximeter Temp 98.9 F Temp Source Oral Pulse Oximetry (%) 98 Oxygen Delivery Method Room Air Intake Visit Reasons: EP Stomach issues Intake Note: Patient is here with stomach problems, has stomach pain won't go away, she has liquid stools, vomiting, chills. Patient Tobacco Use Status: Former Tobacco user Quit Date: as teenager Allergies No Known Allergies Allergy (Verified 01/01/24 14:30) Do you need a note to return to daycare/school/sports/work: No HPI EP Stomach issues HPI Details Patient is a 48-year-old female comes to the walk-in clinic complaining of persistent nausea vomiting diarrhea and abdominal pain for the last 4 days. She states that she had no known sick contacts, and no other reported sick individuals in the house. No likely food-borne infectious cause of symptoms. She has not taken any medication, although she did buy Imodium AD but thought it would be best to let symptoms run their course. She denies mucus or blood or coffee grinds in the stool, which she states is watery. She denies dysuria or urinary symptoms. She denies blood in the emesis. She states that she feels like she has a fever, and intermittently gets chills. She denies weakness, myalgias, dizziness or vertigo, shortness of breath or chest pain, respiratory symptoms, or other significant associated symptoms. [facility] Medical History History of COVID-19 BRYANNA (obstructive sleep apnea) On beta joe at home History of tachycardia Ankle fracture, right Plantar fasciitis Anxiety Hyperlipidemia Morbid obesity Surgical History Hx of colonoscopy History of esophagogastroduodenoscopy (EGD) History of ankle surgery Hx of wisdom tooth extraction History of section Family History Father Diabetes mellitus Depression Anger CHF (congestive heart failure) Stroke Aphagia Pneumonia Mother HTN (hypertension) Anxiety Depression Uterine cancer Son No problems noted. Daughter No problems noted. Daughter No problems noted. Maternal Grandmother Anxiety Depression Lung cancer Maternal Grandfather No problems noted. Paternal Grandfather No problems noted. Paternal Grandmother No problems noted. Other Mental health disorder Substance use disorder Social History Household Members Other:: 3 kids- Housing: House Are you a primary care trainer to a significant other at home: No Do you presently have visiting nurse or other home services: No Alcohol intake: current Alcohol intake frequency: holidays/special occasions only Patient Tobacco Use Status: Former Tobacco user Quit Date: as teenager Tobacco use type: Cigarette e-Cigarette/Vaping Use: Never Used Second Hand Smoke Exposure: No Current occupational status: employed Current occupation: [employer] Cognitive needs: No Hearing needs: No Vision needs: No Review of Systems Const All systems reviewed & are unremarkable except as noted in HPI and below Physical Exam Vital Signs: Last Vital Signs Temp 98.9 F 01/01/24 14:27 Pulse 104 H 01/01/24 14:27 BP 122/74 01/01/24 14:27 Pulse Ox 98 01/01/24 14:27 Oxygen Delivery Method Room Air 01/01/24 14:27 BMI result Body Mass Index 46.1 Const General: cooperative, no acute distress, alert, awake, Physically active and well groomed; No anxious, diaphoretic, intoxicated appearing, poor hygiene or tired appearing Limitations: no limitations Resp Effort & Inspection: normal respiratory effort, able to speak in complete sentences, no audible wheezes, no cough, no grunting, not labored, no nasal flaring, no retractions and symmetric chest movement Auscultation: clear to auscultation bilaterally, no crackles, no rales, no rhonchi, no wheezes, lung sounds not diminished and No rub present Cardio Rate: regular rate GI Palpation (GI): Soft to palpation, not firm, Tenderness to palpation present (GI) (Epigastric) in the epigastrum; with no rebound tenderness, no guarding, not rigid, No hepatosplenomegaly present and Bladder palpation abnormal General: Yes Bladder palpation abnormal Psych Appearance: grossly normal Mental Status: mental status grossly normal Speech and movement: Normal speech and movement present Affect: normal affect Attitude: cooperative Thought process: Normal thought process present Insight: Good insight present (Psych) Judgement: Good judgement present (Psych) Assessment & Plan Assessment & Plan (1) Diarrhea: Code(s): R19.7 - Diarrhea, unspecified Qualifiers: Diarrhea type: presumed infectious Qualified Code(s): R19.7 - Diarrhea, unspecified Plan: Likely infective acute gastroenteritis as the cause of 4 days of vomiting and diarrhea symptoms. No known sick contacts. Patient has mild tachycardia with pulse of 104, although normotensive blood pressure at this time. She does not complain of dizziness or weakness, and is afebrile. She does have a tender epigastric abdomen, but no firmness, guarding or current surgical abdomen indicators. She does tolerate some fluid intake as long as she stays upright, however she states that she cannot lay supine as this will induce vomiting. We discussed focusing on fluid intake and she is aware of a bland BRAT diet. I wrote her for a course of Zofran for the nausea and vomiting, and she will start Imodium AD which she has at home if needed. I also wrote her a course of azithromycin, as her symptoms are still moderately severe going on four full days now. We discussed that if symptoms persist tomorrow, or she has not been able to get adequately hydrated, that she should go to emergency department for further evaluation and management. She was amenable to this plan Orders: Orders SARS-CoV2/FLU/RSV Today R09.89 - Other specified symptoms and signs involving the circulatory and respiratory systems Medications: New ondansetron 4 mg PO TID 5 days PRN 15 tabs 0RF nausea and vomiting azithromycin (2 x 250 mg) Take 2 tablets by mouth for 3 days 3 days 6 tabs 0RF diarrhea Coding Level of Care Code Est Pt Level 4 (73333) Diagnoses Diarrhea of presumed infectious origin R19.7 Diarrhea type: presumed infectious
[2024-01-01 14:27] VITALS: BP 122/74; PULSE 104; TEMP 37.2; O2SAT 98; BMI 46.1
== END 2024-01-01 15:08 | disposition home or self-care (01) ==
PROVIDERS: PCP Nurse Practitioner Family; Visit Provider Physician Assistant Medical
DX: R19.7 Diarrhea, unspecified (principal)
CPT/HCPCS: 99051; 99214

== ENCOUNTER 2024-01-01 15:22 | Outpatient (REF) | payer OTHER, SELFPAY ==
[2024-01-01 16:07] LABS: Influenza A PCR NEGATIVE (Negative); Influenza B PCR NEGATIVE (Negative); Resp Syncy Virus RNA Qual PCR NEGATIVE (Negative); SARS COV2 PCR INHOUSE NEGATIVE (Negative)
== END 2024-01-01 15:23 | disposition home or self-care (01) ==
LOC: HO.LNP 15:22
PROVIDERS: Visit Provider Physician Assistant Medical
DX: R09.89 Other specified symptoms and signs involving the circulatory and respiratory systems (principal); J06.9 Acute upper respiratory infection, unspecified
CPT/HCPCS: 0241U

== ENCOUNTER 2024-04-04 08:01 | Outpatient (AMB) | payer OTHER, SELFPAY ==
--- NOTE | 2024-04-04 08:07 | MHC.PC.OV ---
Vital Signs 04/04/24 08:08 Height 5 ft 4.5 in Weight 253 lb BMI 42.8 BP 110/78 Blood Pressure Location Rt brachial Position Sitting Pulse 88 Pulse Source Pulse Oximeter Pulse Oximetry (%) 99 Oxygen Delivery Method Room Air Intake Visit Reasons: Annual PE Intake Note: Patient here for physical exam. Pap: 2023 Mammo: 2022 Allergies No Known Allergies Allergy (Verified 04/04/24 08:08) Medication List - Last Reconciled 04/04/24 by HANNAH Brito atorvastatin 10 mg PO DAILY levonorgestrel-ethinyl estrad 0.15-0.03 mg (Deseanvelo (28)) 1 tab PO DAILY metoprolol succinate ER 25 mg PO DAILY ondansetron 4 mg PO TID PRN 5 days sertraline 100 mg PO DAILY tirzepatide (Mounjaro) 5 mg subcut QWEEK Tobacco use date assessed: 04/04/24 Dental Screening Dental Screen Date: 04/04/24 Did you have a dental visit in the last 12 months?: Yes Did you have a dental problem in the last 6 months where you did not have access to dental care?: No Was dental information given to patient?: Patient has dentist HPI Annual PE HPI Details Pt is here for a PE. Will order labs. Colon screen is up to date. Pt will schedule her own mammo. 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 Pt is on mounjaro which is prescribed by a weight loss clinic. [facility] Medical History History of COVID-19 BRYANNA (obstructive sleep apnea) On beta joe at home History of tachycardia Ankle fracture, right Plantar fasciitis Anxiety Hyperlipidemia Morbid obesity Surgical History Hx of colonoscopy History of esophagogastroduodenoscopy (EGD) History of ankle surgery Hx of wisdom tooth extraction History of section Family History Father Diabetes mellitus Depression Anger CHF (congestive heart failure) Stroke Aphagia Pneumonia Mother HTN (hypertension) Anxiety Depression Uterine cancer Son No problems noted. Daughter No problems noted. Daughter No problems noted. Maternal Grandmother Anxiety Depression Lung cancer Maternal Grandfather No problems noted. Paternal Grandfather No problems noted. Paternal Grandmother No problems noted. 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 How often do you have a drink containing alcohol?: Monthly or less 2. How many drinks containing alcohol do you have on a typical day when you are drinking?: 1 or 2 3. How often do you have six or more drinks on one occasion?: Never Total Score: 1 Score Reviewed/Action Taken: No GABY-7 AMB Questionnaire GABY-7 Date GABY - 7 assessed: 12/22/22 Source: Developed by Drs. Beto Alvarenga, Christin Martinez, Sotero Paul and colleagues, with an educational laura from [employer]. Review of Systems Const Denies chills and Denies fever(s) Eyes Denies blurry vision ENT Denies vertigo, Denies dizziness and Denies sore throat Card Denies chest pain at rest, Denies chest pain with activity, Denies diaphoresis, Denies dyspnea and Denies dyspnea on exertion Resp Denies cough, Denies dyspnea, Denies dyspnea on exertion and Denies wheezing GI Denies abdominal pain, Denies melena, Denies hematochezia, Denies constipation, Denies diarrhea and Denies loose stools Denies hematuria Musc Denies numbness and Denies tingling Skin/Breast Denies lesions Neuro Denies vertigo, Denies dizziness, Denies numbness and Denies tingling Psych Denies anxiety, Denies depression, Denies homicidal ideation, Denies suicidal ideation and Denies other (substance abuse) Aller/Immun Denies wheezing Physical exam (Primary Care) Vital Signs: Last Vital Signs Pulse 88 04/04/24 08:08 BP 110/78 04/04/24 08:08 Pulse Ox 99 04/04/24 08:08 Oxygen Delivery Method Room Air 04/04/24 08:08 BMI result Body Mass Index 42.8 Tobacco/Smoking Status: Tobacco use Status Tobacco use date assessed 04/04/24 04/04/24 08:10 Patient Tobacco Use Status Former Tobacco user 04/04/24 08:10 Tobacco use type Cigarette 04/04/24 08:10 e-Cigarette/Vaping Use Never Used 04/04/24 08:10 Thrive Assessment: Date of Thrive Assessment Date Thrive assessed 12/22/22 04/04/24 08:10 Const General: cooperative Nutritional Appearance: obese Orientation/consciousness: patient oriented x3 HENMT Head: Yes normal to inspection, Yes normocephalic and Yes atraumatic Ears: TM's normal bilaterally Eyes General: appearance normal, both eyes and all related structures Alignment and Position: alignment normal and position normal Neck Neck: Yes normal visual inspection and Yes no lymphadenopathy Thyroid: Thyroid normal Resp Effort & Inspection: normal respiratory effort Auscultation: clear to auscultation bilaterally Cardio Rate: regular rate Rhythm: regular rhythm Heart sounds: S1 normal heart sound present, S2 normal heart sound present and no murmurs GI Palpation (GI): Soft to palpation and nontender Auscultation: normal bowel sounds Skin Rashes: no rashes Neuro General: patient oriented x3, moves all extremities, no focal motor deficits and deep tendon reflexes 2+ bilaterally Romberg Test: Negative Psych Appearance: grossly normal Mental Status: mental status grossly normal Speech and movement: Normal speech and movement present Affect: normal affect Attitude: cooperative Thought process: Normal thought process present Thought content: Normal thought content present Insight: Good insight present (Psych) Judgement: Good judgement present (Psych) Assessment and Plan Assessment & Plan (1) Physical exam: Code(s): Z00.00 - Encounter for general adult medical examination without abnormal findings Plan: Labs ordered (2) Obesity: Code(s): E66.9 - Obesity, unspecified Plan: On Ish, doing well on this med. Plan The patient agreed to the use of a medical territory manager for this encounter. Scribed for Gigi Flynn [facility]- by Phuong Del Rosario, medical territory manager, on 04/04/2024 at 08:10 EST. Orders: Orders TSH reflex Free T4 Today Z00.00 - Encounter for general adult medical examination without abnormal findings Complete Blood Count Auto Diff Today Z00.00 - Encounter for general adult medical examination without abnormal findings Comprehensive [place]. Panel Fast Today Z00.00 - Encounter for general adult medical examination without abnormal findings UA CC w/rflx Micro + Cult Today Z00.00 - Encounter for general adult medical examination without abnormal findings Lipid Panel Today Z00.00 - Encounter for general adult medical examination without abnormal findings Coding Level of Care Code Est Pt Prev Care 40-64y(75717) Diagnoses Physical exam Z00.00 Obesity E66.9
[2024-04-04 08:08] VITALS: BP 110/78; PULSE 88; O2SAT 99; BMI 42.8
== END 2024-04-04 08:28 | disposition home or self-care (01) ==
PROVIDERS: PCP Nurse Practitioner Family; Visit Provider Nurse Practitioner Family
DX: Z00.00 Encounter for general adult medical examination without abnormal findings (principal); E66.9 Obesity, unspecified; Z68.41 Body mass index [BMI] 40.0-44.9, adult
CPT/HCPCS: 99396

== ENCOUNTER 2024-05-19 08:09 | Outpatient (REF) | payer OTHER, SELFPAY ==
[2024-05-19 10:01] LABS: Appearance Urine Cloudy; Color Urine Yellow; Glucose Urine UA Negative (Negative); Leukocyte Esterase Urine Small (1+) (Negative); Nitrite Urine Negative (Negative); PH 5.5 (5.0-9.0); Specific Gravity - Urine 1.025 (1.005-1.025); UMIC TRIGGER UACC YES; Urine Blood Small (1+) (Negative); Urine Ketones Trace mg/dL (Negative); Urine Protein Negative (Neg-Trace)
[2024-05-19 10:05] LABS: MANUAL DIFF FLAG NO
[2024-05-19 10:18] LABS: Basophils Absolute Auto 0.1 X10*3/uL (0.0-0.2); Basophils Percent Auto 0.9 % (0-2); Eosinophils Absolute Auto 0.1 X10*3/uL (0.0-0.4); Eosinophils Percent Auto 1.1 % (0-4); Hematocrit 40.4 % (37.0-47.0); Hemoglobin 13.1 g/dl (12.0-16.0); Imm Gran Abs Auto 0.03 X10*3/uL (0.00-0.03); Imm Gran Pct Auto 0.3 % (0.0-0.4); Lymphocytes Absolute Auto 3.8 X10*3/uL (1.2-4.9); Lymphocytes Percent Auto 42.5 % (20-40); Mean Corpuscular HGB Conc 32.4 g/dl (31.0-35.0); Mean Corpuscular Hemoglobin 30.2 pg (27.0-33.0); Mean Corpuscular Volume 93.1 fL (80.0-98.0); Mean Platelet Volume 10.3 fL (9.4-12.3); Monocytes Absolute Auto 0.5 X10*3/uL (0.1-1.2); Monocytes Percent Auto 5.2 % (2-11); Neutrophils Absolute Auto 4.5 x10*3/uL (2.0-8.3); Platelet Count 336 X10*3/uL (160-400); Red Blood Count 4.34 X10*6/uL (4.20-5.50); Red Cell Distribution Width 12.5 % (11.0-16.0)
[2024-05-19 10:22] LABS: Bacteria Urine 3+ (None Seen); Hyaline Casts Urine 0-2 /LPF (0-2); UACC Culture Trigger YES
[2024-05-19 10:48] LABS: Alanine Aminotransferase 14 U/L (0-31); Albumin Level 3.7 g/dL (3.5-5.0); Alkaline Phosphatase 86 U/L (39-117); Anion Gap 10 (12-20); Aspartate Amino Transferase 16 U/L (5-31); Bilirubin Total 0.5 mg/dL (0.0-1.0); Blood Urea Nitrogen 15 mg/dL (9-16); Carbon Dioxide 26 mmol/L (22-29); Chloride 107 mmol/L (96-108); Cholesterol 165 mg/dL (<200); Estimated Glomerular Filt Rate > 60; Glucose Fasting 97 mg/dL (60-99); HDL Cholesterol 54 mg/dL (>40); LDL Cholesterol Calculated 95 mg/dL (<100); Potassium 4.3 mmol/L (3.3-5.1); Sodium 139 mmol/L (135-145); Total Protein 6.9 g/dL (6.5-8.0); Triglycerides 84 mg/dL (<150)
== END 2024-05-19 08:10 | disposition home or self-care (01) ==
LOC: HO.HMGCLDS 08:09
PROVIDERS: PCP Nurse Practitioner Family; Visit Provider Nurse Practitioner Family
DX: Z00.00 Encounter for general adult medical examination without abnormal findings (principal)
CPT/HCPCS: 36415; 80053; 80061; 81001; 81003; 84443; 85025; 87086

== ENCOUNTER 2024-08-17 15:23 | Outpatient (REF) | payer OTHER, SELFPAY ==
[2024-08-17] MEDS: iohexoL 350 MG/ML 100 ML INFUS..BTL 85 ML IV (16:16)
== END 2024-08-17 15:24 | disposition home or self-care (01) ==
LOC: HO.CT 15:23
PROVIDERS: PCP Nurse Practitioner Family; Visit Provider Nurse Practitioner Family
DX: R31.29 Other microscopic hematuria (principal)
CPT/HCPCS: 74178; Q9967

== ENCOUNTER 2024-12-18 13:20 | Outpatient (REF) | payer OTHER, SELFPAY ==
--- NOTE | ~2024-12-18 | CT_ITS ---
CLINICAL HISTORY: microhematuria CT abdomen and pelvis with and without IV contrast. Delayed imaging was also obtained. COMPARISON: None. FINDINGS: Partially visualized lung bases are unremarkable. No focal hepatic lesion. Gallbladder is contracted. Normal spleen. Normal pancreas. Normal adrenal glands. No right-sided hydronephrosis. No right renal calculus. No right hydroureter. At the right UVJ there is a 1 mm calcification (series 7, image [id number]). No abnormal enhancement within the right kidney. On delayed imaging contrast opacifies the ureters and enters the urinary bladder without evidence of obstruction. No left-sided hydronephrosis. No left renal or ureteral calculus. Pelvic phleboliths present along the course of the distal left ureter. No abnormal enhancement within the left kidney. On delayed imaging contrast opacifies the left renal collecting system and enters the urinary bladder without evidence of obstruction. Visualized portions of the appendix are normal in caliber. Mild distal colonic diverticulosis without evidence of diverticulitis. No bowel obstruction. No mesenteric or retroperitoneal lymphadenopathy. Normal abdominal aorta. Normal appearance of the urinary bladder. No abnormal urinary bladder wall thickening. No adnexal mass. Small fat containing umbilical hernia. Mild spondylosis. No acute fracture or suspicious bone lesion. IMPRESSION: 1. Question nonobstructing 1 mm ureteral calculus at the right UVJ versus closely adherent phlebolith. No renal calculus bilaterally. 2. No evidence of renal obstruction bilaterally. No renal mass bilaterally. This document has been electronically signed by: Dioni Osorio MD on 12/19/2024 15:14:37
[2024-12-18] MEDS: iohexoL 350 MG/ML 100 ML INFUS..BTL IV (14:50)
== END 2024-12-18 13:21 | disposition home or self-care (01) ==
LOC: HO.CT 13:20
PROVIDERS: PCP Nurse Practitioner Family; Visit Provider Nurse Practitioner Family
DX: R31.29 Other microscopic hematuria (principal)
CPT/HCPCS: 74178; Q9967

== ENCOUNTER → 2024-12-18 14:00 | Outpatient (BNV) | payer OTHER, SELFPAY | PROVIDERS: PCP Nurse Practitioner Family; Visit Provider Radiology Diagnostic Radiology | DX: R31.29 Other microscopic hematuria (principal) | CPT/HCPCS: 74178 ==

== ENCOUNTER 2025-05-02 08:02 | Outpatient (AMB) | payer OTHER, SELFPAY ==
--- OUTSIDE RECORDS SUMMARY | 2024-11-30 08:00 | XMS_ITS ---
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 Name Role Phone Gigi Blunt Primary Care Provider Unav ailable Sejal Arias Unavailable [phone] Encounters Encounter Location Date Provider Diagnosis [address] [address] 11/30/2024 Sejal Arias Plan Of Treatment No Information Progress Notes * Adalid MCGHEEOB: [birth year] (50 yo F)Acc No.[id number]:11/30/2024 Progress Notes Patient: Love BARTH Provider: Damion Arias DPM :1975 A ge:49 Y S ex:Female Date:11/30/2024 Address:[address] [place], [place] [id number] Pcp:MILTON Rowe Subjective: * Chief Complaints: * * Medical History: Objective: * Vitals: Assessment: Plan: * Treatment: * Images: * The named appointment provid er may or may not be the originator of this progress note, and it is not deemed complete until electronically signed by the appointment provider. Sign off status: Pending * Provider: Damion Arias DPM Date: 0 11/30/2024 Generated for Pérez daigle/Jorge/eTransmitting on: 0 05/02/2025 08:04 AM EDT
[2025-05-02 08:03] VITALS: BP 108/72; PULSE 100; RESP 16; TEMP 36.8; O2SAT 98; BMI 40.0
--- NOTE | 2025-05-02 08:03 | A.OFFPC_ITS ---
Vital Signs 05/02/25 08:03 Height 5 ft 4.5 in Weight 237 lb BMI 40.0 BP 108/72 Blood Pressure Location Lt brachial Position Sitting Respiration 16 Pulse 100 Pulse Source Pulse Oximeter Temp 98.3 F Temp Source Oral Pulse Oximetry (%) 98 Oxygen Delivery Method Room Air Intake Visit Reasons: PE Occ Med Physician Required: No Accompanied by: Self / Same As Patient Allergies No Known Allergies Allergy (Verified 05/02/25 08:03) Medication List - Last Reconciled 05/02/25 by KENN Brito- atorvastatin 10 mg PO DAILY levonorgestrel-ethinyl estrad 0.15-0.03 mg (Osman (28)) 1 tab PO DAILY metoprolol succinate ER 25 mg PO DAILY sertraline 100 mg PO DAILY tirzepatide (Mounjaro) 5 mg subcut QWEEK Tobacco use date assessed: 05/03/24 Dental Screening Dental Screen Date: 05/02/25 Did you have a dental visit in the last 12 months?: Yes Did you have a dental problem in the last 6 months where you did not have access to dental care?: No Was dental information given to patient?: Patient has dentist HPI PE HPI Details History of Present Illness The patient is a 50-year-old female presenting with a physical examination. She denies experiencing any chest pain, dyspnea, abdominal pain, hematochezia, co nstipation, or diarrhea. Additionally, she denies any suicidal or homicidal ideation. The patient has a history of microscopic hematuria and has previously consulted with urology, where she was cleared (according to pt). A CT urogram was conducted, revealing 1 mm calculi, indicative of nephrolithiasis. She denies any pelvic or flank pain and has not completed urine cytology, which was ordered las t year. Her preventative care is up to date, including a recent mammogram and colon screening. The patient is noted to be morbidly obese. Health Maintenance - Mammogram: Up to date - Colon screening: Up to date Social History Review of Systems - Cardiovascular: Denies chest pain - Respiratory: Denies dyspnea - Gastrointestinal: Denies abdominal meka n, hematochezia, constipation, diarrhea - Psychiatric: Denies suicidal ideation, homicidal ideation - Genitourinary: Denies pelvic pain, fla nk pain Physical Exam General: Cooperative, healthy appearing, comfortable, no acute distress, well developed, and morbidly obese Orientation: Patient oriented x3 Limitations: No limitations Head: Normal to inspection Ears: Hearing grossly normal bilaterally Nose: Normal external nose present Face and sinus: Normal facial exam Eyes: Appearance normal, both eyes and all related structures Neck: Normal visual inspection and Yes full ROM Respiratory: Normal respiratory effort and able to speak in complete sentences. Clear to auscultation bilaterally Cardiovascular: Regular rate and rhythm. Normal S1 and S2 GI: Normal to inspection. Soft to palpation and nontender Skin: No rashes or lesions noted Neuro: Patient oriented x3 Extremities: Normal to inspection Results - CT Urogram: 1 mm calculi noted Plan The patient will continue with her current preventative care measures, ensuring her mammogram and colon screening remain up to date. Urine cytology, which was previously ordered, will be completed to further evaluate her history of microscopic hematuria. Given the presence of nephrolithiasis, monitoring for any potential symptoms such as pain or hematuria is advised. [facility] Medical History History of COVID-19 BRYANNA (obstructive sleep apnea) On beta joe at home History of tachycardia Ankle fracture, right Plantar fasciitis Anxiety Hyperlipidemia Morbid obesity Surgical History Hx of colonoscopy History of esophagogastroduodenoscopy (EGD) History of ankle surgery Hx of wisdom tooth extraction History of section Family History Father Diabetes mellitus Depression Anger CHF (congestive heart failure) Stroke Aphagia Pneumonia Mother HTN (hypertension) Anxiety Depression Uterine cancer Son No problems noted. Daughter No problems noted. Daughter No problems noted. Maternal Grandmother Anxiety Depression Lung cancer Maternal Grandfather No problems noted. Paternal Grandfather No problems noted. Paternal Grandmother No problems noted. Other Mental health disorder Substance use disorder Social History Household Members Other:: 3 kids- Housing: House Are you a primary social worker palliative care to a significant other at home: No Do you presently have visiting nurse or other home services: No Alcohol intake: current Alcohol intake frequency: holidays/special occasions only Patient Tobacco Use Status: Former Tobacco user Tobacco use type: Cigarette e-Cigarette/Vaping Use: Never Used Second Hand Smoke Exposure: No Current occupational status: employed Current occupation: [employer] Cognitive needs: No Hearing needs: No Vision needs: No Questionnaire PHQ-9 Over the last 2 weeks, how often have you been bothered by any of the following problems? 1. Little interest or pleasure in doing things: not at all 2. Feeling down, depressed, or hopeless: not at all 3. Trouble falling or staying asleep, or sleeping too much: not at all 4. Feeling tired or having little energy: not at all 5. Poor appetite or overeating: not at all 6. Feeling bad about yourself - or that you are a failure or have let yourself or your family down: not at all 7. Trouble concentrating on things, such as reading the newspaper or watching television: not at all 8. Moving or speaking so slowly that other people could have noticed. Or the opposite - being so fidgety or restless that you have been moving around a lot more than usual: not at all 9. Thoughts that you would be better off or of hurting yourself in some way: not at all Total score: 0 Depression Screening Interpretation: Negative Depression Screening Done: Yes 33892 - PHQ-9 Billing: Yes Source: Developed by Drs. Beto Alvarenga, Christin Martinez, Sotero Paul and colleagues, with an educational laura from [employer]. Thrive Questionnaire Date Thrive assessed: 04/26/25 I am a: Patient What is your living situation today?: I have a steady place to live Within the past 12 months, did the food you bought not last and you didn't have the money to get more?: Never true Within the past 12 months, did you worry whether your food would run out before you got money to buy more?: Never true Do you have trouble paying for medicines?: No Do you have trouble getting transportation to medical appointments?: No Do you have trouble paying your heating and electricity bill?: No Do you have trouble taking care of your child, family member or friend?: No Do you have trouble with day-to-day activities such as bathing, preparing meals, shopping, managing finances, etc.?: No Are you currently unemployed and looking for a job?: No Are you interested in more education?: No Please select the resources that you would like help with: None Currently or been in a relationship where the following occur: No concerns reported THRIVE Score: 0 AUDIT C Alcohol Use Questionnaire (AUDIT-C) 1. How often do you have a drink containing alcohol?: Monthly or less 2. How many drinks containing alcohol do you have on a typical day when you are drinking?: 1 or 2 3. How often do you have six or more drinks on one occasion?: Never Total Score: 1 GABY-7 AMB Questionnaire GABY-7 Date GABY - 7 assessed: 05/02/25 Feeling nervous, anxious, or on edge: 0 = Not at all Not being able to stop or control worryin = Not at all Worrying too much about different things: 0 = Not at all Trouble relaxin = Not at all Being so restless that it is hard to sit still: 0 = Not at all Becoming easily annoyed or irritable: 0 = Not at all Feeling afraid as if something awful might happen: 0 = Not at all Total GABY-7 score (0-4 normal; 5-9 mild; 10-14 moderate; 15-21 severe): 0 Source: Developed by Drs. Beto Alvarenga, Christin Martinez, Sotero Paul and colleagues, with an educational laura from [employer]. GABY-7 Assessment Billing GABY-7 Assessment Tool: GABY-7 Assessment 96344 Physical exam (Primary Care) Vital Signs: Last Vital Signs Temp 98.3 F 05/02/25 08:03 Pulse 100 05/02/25 08:03 Resp 16 05/02/25 08:03 BP 108/72 05/02/25 08:03 Pulse Ox 98 05/02/25 08:03 Oxygen Delivery Method Room Air 05/02/25 08:03 BMI result Body Mass Index 40.0 Tobacco/Smoking Status: Tobacco use Status Tobacco use date assessed 05/03/24 05/02/25 08:10 Patient Tobacco Use Status Former Tobacco user 05/02/25 08:10 Tobacco use type Cigarette 05/02/25 08:10 e-Cigarette/Vaping Use Never Used 05/02/25 08:10 PHQ-9: PHQ-9 Score PHQ-9: Total score 0 05/02/25 08:10 Depression Screening Interpretation: Negative Thrive Assessment: Date of Thrive Assessment Date Thrive assessed 04/26/25 05/02/25 08:10 Currently or been in a relationship where the following occur: No concerns reported Coding Level of Care Code Est Pt Prev Care 40-64y(45545) Diagnoses Physical exam Z00. Vitamin D deficiency E55.9 Additional Codes GABY-7 Assessment Billing - GABY-7 Assessment Tool: GABY-7 Assessment 93840 ([id number]) PHQ-9 - 77628 - PHQ-9 Billing: Yes ([id number]) Assessment & Plan Assessment & Plan (1) Physical exam: Code(s): Z00.00 - Encounter for general adult medical examination without abnormal findings Category: Medical (2) Vitamin D deficiency: Code(s): E55.9 - Vitamin D deficiency, unspecified Category: Medical Plan . Orders: Orders Complete Blood Count Auto Diff Today Z00.00 - Encounter for general adult medical examination without abnormal findings Comprehensive [place]. Panel Fast Today Z00.00 - Encounter for general adult medical examination without abnormal findings Vitamin D 25-OH Total Today E55.9 - Vitamin D deficiency, unspecified TSH reflex Free T4 Today Z00.00 - Encounter for general adult medical examination without abnormal findings UA CC w/rflx Micro + Cult Today Z00.00 - Encounter for general adult medical examination without abnormal findings Lipid Panel Today Z00.00 - Encounter for general adult medical examination without abnormal findings
== END 2025-05-02 08:34 | disposition home or self-care (01) ==
LOC: HO.HMCC 08:02
PROVIDERS: PCP Nurse Practitioner Family; Visit Provider Nurse Practitioner Family
DX: Z00.00 Encounter for general adult medical examination without abnormal findings (principal); E55.9 Vitamin D deficiency, unspecified

== ENCOUNTER 2025-05-02 08:02 | Outpatient (REF) | payer OTHER, SELFPAY ==
[2025-05-02 10:07] LABS: MANUAL DIFF FLAG NO
[2025-05-02 10:16] LABS: Hematocrit 40.8 % (37.0-47.0); Hemoglobin 13.9 g/dl (12.0-16.0); Imm Gran Abs Auto 0.02 X10*3/uL (0.00-0.03); Imm Gran Pct Auto 0.2 % (0.0-0.4); Lymphocytes Absolute Auto 2.9 X10*3/uL (1.2-4.9); Mean Corpuscular HGB Conc 34.1 g/dl (31.0-35.0); Mean Corpuscular Hemoglobin 30.7 pg (27.0-33.0); Mean Corpuscular Volume 90.1 fL (80.0-98.0); NRBC Abs Auto 0.000 X10*3/uL (0.0-0.012); NRBC Pct Auto 0.0 /100WBC (0.0-0.2); Platelet Count 319 X10*3/uL (160-400); Red Blood Count 4.53 X10*6/uL (4.20-5.50); White Blood Count 8.3 X10*3/uL (4.8-10.8)
[2025-05-02 10:25] LABS: Appearance Urine Cloudy; Glucose Urine UA Negative (Negative); PH 5.5 (5.0-9.0); Specific Gravity - Urine 1.025 (1.005-1.025); UMIC TRIGGER UA YES
[2025-05-02 10:43] LABS: Alanine Aminotransferase 15 U/L (0-31); Albumin Level 4.1 g/dL (3.5-5.0); Alkaline Phosphatase 87 U/L (39-117); Anion Gap 12 (12-20); Aspartate Amino Transferase 28 U/L (5-31); Blood Urea Nitrogen 16 mg/dL (9-16); Calcium 9.0 mg/dL (8.4-10.2); Carbon Dioxide 25 mmol/L (22-29); Chloride 108 mmol/L (96-108); Cholesterol 155 mg/dL (<200); Estimated Glomerular Filt Rate > 60; HDL Cholesterol 53 mg/dL (>40); Potassium 4.1 mmol/L (3.3-5.1); Sodium 141 mmol/L (135-145); Total Protein 7.1 g/dL (6.5-8.0); Triglycerides 86 mg/dL (<150)
== END 2025-05-02 08:03 | disposition home or self-care (01) ==
LOC: HO.HMGCLDS 08:02
PROVIDERS: PCP Nurse Practitioner Family; Visit Provider Nurse Practitioner Family
DX: Z00.00 Encounter for general adult medical examination without abnormal findings (principal); E55.9 Vitamin D deficiency, unspecified; R31.29 Other microscopic hematuria; Z13.31 Encounter for screening for depression; Z13.39 Encounter for screening examination for other mental health and behavioral disorders
CPT/HCPCS: 36415; 80053; 80061; 81001; 82306; 84443; 85025; 87086; 88112; 96127